=== PATIENT | female | born 2000 | race Caucasian/White ===

== ENCOUNTER 2020-01-21 19:25 | Emergency (ER) | payer OTHER ==
[2020-01-21] MEDS ORDERED: METOCLOPRAMIDE 10 MG/2mL INJ ONE (20:19)
[2020-01-21] MEDS ORDERED: KETOROLAC 30 MG/ML INJ ONE (20:20)
[2020-01-21] MEDS ORDERED: NA CHLORIDE 0.9% 1,000 ML ONE (20:20)
[2020-01-21 20:33] LABS: Absolute Lymphocytes (CBC) 2.6 K/uL (0.7-4.9); Basophils % 0.7 % (0-1.3); Hematocrit 42.6 % (36.0-45.0); Lymphocytes % 33.2 % (15.3-44.8); MPV 8.3 fL (7.6-11.3)
[2020-01-21 20:42] LABS: Bilirubin Total 0.4 mg/dL (0.2-1.0); Potassium 3.6 mmol/L (3.5-5.1); Protein, Total 8.1 g/dL (6.4-8.2)
[2020-01-21 20:43] LABS: Urine Blood NEGATIVE (NEG); Urine Glucose NEGATIVE (NEG); Urine Protein NEGATIVE (NEG); Urine Specific Gravity 1.015 (1.005-1.030)
--- NOTE | 2020-01-21 20:56 | ER ---
Nurse's Notes [facility] Name: Bre Romeo Age: 19 yrs Sex: Female : 2000 Arrival Date: 01/21/2020 Time: 19:30 Bed 23 Private MD: Diagnosis: Migraine without aura Presentation: 01/21 19:37 Presenting complaint: Patient states: Took Maxalt today around 1530 today, reports at sg about 1800 had felt tired with heaviness in the arms and legs, reports numbness to face, reports all symptoms resolved at this time, but still feels very tired. Transition of care: patient was not received from another setting of care. Onset of symptoms was January 21, 2020. Risk Assessment: Do you want to hurt yourself or someone else? Patient reports no desire to harm self or others. Initial Sepsis Screen: Does the patient meet any 2 criteria? No. Patient's initial sepsis screen is negative. Does the patient have a suspected source of infection? No. Patient's initial sepsis screen is negative. Care prior to arrival: None. 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 - Coronavirus screen:: The patient has NOT traveled to [place] in the past 14 days. The patient has NOT had contact with known/suspected case of Coronavirus?. - Social history:: Patient/guardian denies using alcohol, street drugs, The patient lives with family, Smoking status: Patient denies any tobacco usage or history of. - Family history:: not pertinent. - Ebola Screening: : Patient negative for fever greater than or equal to 101.5 degrees Fahrenheit, and additional compatible Ebola Virus Disease symptoms Patient denies exposure to infectious person Patient denies travel to an Ebola-affected area in the 21 days before illness onset No symptoms or risks identified at this time. Screenin:00 Abuse screen: Denies threats or abuse. Denies injuries from another. Nutritional wh screening: No deficits noted. Tuberculosis screening: No symptoms or risk factors identified. Fall Risk None identified. Assessment: 20:00 General: Appears in no apparent distress. Behavior is calm, cooperative, appropriate wh for age. Pain: Complains of pain in head ache. Neuro: Level of Consciousness is awake, alert, obeys commands, Oriented to person, place, time, situation, Appropriate for age Reports headache. Cardiovascular: Heart tones S1 S2. Respiratory: Airway is patent Respiratory effort is even, unlabored, Respiratory pattern is regular, symmetrical, Breath sounds are clear bilaterally. GI: Abdomen is flat, non-distended. : No signs and/or symptoms were reported regarding the genitourinary system. EENT: No signs and/or symptoms were reported regarding the EENT system. Derm: Skin is intact, is healthy with good turgor, Skin is pink, warm \T\ dry. normal. Musculoskeletal: Circulation, motion, and sensation intact. 21:10 Reassessment: Patient appears in no apparent distress at this time. No changes from previously documented assessment. Patient and/or family updated on plan of care and expected duration. Pain level reassessed. Patient is alert, oriented x 3, equal unlabored respirations, skin warm/dry/pink. Patient states feeling better. Patient states symptoms have improved. Vital Signs: 19:39 BP 120 / 55; Pulse 77; Resp 16; Temp 98.2(TE); Pulse Ox 100% on R/A; Weight 83.91 kg (R); Height 5 ft. 4 in. (162.56 cm); Pain 4/10; 21:00 BP 94 / 65; Pulse 78; Resp 18; Pulse Ox 99% on R/A; wh 19:39 Body Mass Index 31.75 (83.91 kg, 162.56 cm) ED Course: 19:30 Patient arrived in ED. jg7 19:36 Jonathan Latif MD is Attending Physician. ma2 19:39 Triage completed. sg 19:40 Mejia Penn is Primary Nurse. wh 20:00 Arm band placed on right wrist. wh 20:00 Patient has correct armband on for positive identification. Bed in low position. Call light in reach. Side rails up X 1. Pulse ox on. NIBP on. 20:05 Inserted saline lock: 20 gauge in right antecubital area, using aseptic technique. jb5 Blood collected. 20:11 CMP Sent. jb5 20:11 CBC with Diff Sent. jb5 21:16 No provider procedures requiring assistance completed. IV discontinued, intact, bleeding controlled, No redness/swelling at site. Administered Medications: 20:17 Drug: NS 0.9% 1000 ml Route: IV; Rate: 1 bolus; Site: right antecubital; 21:18 Follow up: Response: No adverse reaction; IV Status: Completed infusion 20:19 Drug: TORadol 30 mg Route: IVP; Site: right antecubital; 21:18 Follow up: Response: No adverse reaction; Pain is decreased 20:21 Drug: Reglan 20 mg Route: IVP; Site: right antecubital; 21:18 Follow up: Response: No adverse reaction Outcome: 20:55 Discharge ordered by . starla 21:17 Discharged to home ambulatory, with family. 21:17 Condition: stable 21:17 Discharge instructions given to patient, family, Instructed on discharge instructions, follow up and referral plans. medication usage, POC Demonstrated understanding of instructions, follow-up care, medications, POC Prescriptions given X 1. 21:19 Patient left the ED. Signatures: Sergio Turner, RN RN Julieta Dubon jb5 Mejia Penn Jonathan Latif MD MD ma2 Gutierrez, Jessica jg7
--- NOTE | 2020-01-21 20:56 | EDPHYS ---
Physician Documentation [facility] Name: Bre Romeo Age: 19 yrs Sex: Female : 2000 Arrival Date: 01/21/2020 Time: 19:30 Bed 23 Private MD: ED Physician Jonathan Latif HPI: 01/21 19:57 This 19 yrs old Female presents to ER via Ambulatory with complaints of ma2 Doesn't Feel Right. 19:57 The patient complains of pain to the forehead. Onset: The symptoms/episode ma2 began/occurred gradually, 1 day(s) ago. Associated signs and symptoms: Pertinent negatives: fever, neck stiffness, Photophobia. Severity of symptoms: At its worst the pain was moderate, in the emergency department the pain is unchanged. Headache History: The patient has had previous headaches and this one is similar to previous episodes. The patient has experienced similar episodes in the past. 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 - Coronavirus screen:: The patient has NOT traveled to [place] in the past 14 days. The patient has NOT had contact with known/suspected case of Coronavirus?. - Social history:: Patient/guardian denies using alcohol, street drugs, The patient lives with family, Smoking status: Patient denies any tobacco usage or history of. - Family history:: not pertinent. - Ebola Screening: : Patient negative for fever greater than or equal to 101.5 degrees Fahrenheit, and additional compatible Ebola Virus Disease symptoms Patient denies exposure to infectious person Patient denies travel to an Ebola-affected area in the 21 days before illness onset No symptoms or risks identified at this time. ROS: 19:57 Constitutional: Negative for fever, chills, and weight loss. ma2 19:57 All other systems are negative. Exam: 19:57 Constitutional: This is a well developed, well nourished patient who is awake, alert, ma2 and in no acute distress. Head/Face: Normocephalic, atraumatic. Eyes: Pupils equal round and reactive to light, extra-ocular motions intact. Lids and lashes normal. Conjunctiva and sclera are non-icteric and not injected. Cornea within normal limits. Periorbital areas with no swelling, redness, or edema. ENT: Nares patent. No nasal discharge, no septal abnormalities noted. Tympanic membranes are normal and external auditory canals are clear. Oropharynx with no redness, swelling, or masses, exudates, or evidence of obstruction, uvula midline. Mucous membranes moist. Neck: Trachea midline, no thyromegaly or masses palpated, and no cervical lymphadenopathy. Supple, full range of motion without nuchal rigidity, or vertebral point tenderness. No Meningismus. Chest/axilla: Normal chest wall appearance and motion. Nontender with no deformity. No lesions are appreciated. Cardiovascular: Regular rate and rhythm with a normal S1 and S2. No gallops, murmurs, or rubs. Normal PMI, no JVD. No pulse deficits. Respiratory: Lungs have equal breath sounds bilaterally, clear to auscultation and percussion. No rales, rhonchi or wheezes noted. No increased work of breathing, no retractions or nasal flaring. Abdomen/GI: Soft, non-tender, with normal bowel sounds. No distension or tympany. No guarding or rebound. No evidence of tenderness throughout. Back: No spinal tenderness. No costovertebral tenderness. Full range of motion. MS/ Extremity: Pulses equal, no cyanosis. Neurovascular intact. Full, normal range of motion. Neuro: Awake and alert, GCS 15, oriented to person, place, time, and situation. Cranial nerves II-XII grossly intact. Motor strength 5/5 in all extremities. Sensory grossly intact. Cerebellar exam normal. Normal gait. Vital Signs: 19:39 BP 120 / 55; Pulse 77; Resp 16; Temp 98.2(TE); Pulse Ox 100% on R/A; Weight 83.91 kg sg (R); Height 5 ft. 4 in. (162.56 cm); Pain 4/10; 21:00 BP 94 / 65; Pulse 78; Resp 18; Pulse Ox 99% on R/A; wh 19:39 Body Mass Index 31.75 (83.91 kg, 162.56 cm) MDM: 19:36 Patient medically screened. ma2 19:57 Differential diagnosis: migraine, tension headache, traumatic injuries, uremia. Data nv2 reviewed: vital signs, nurses notes, EMS record. 20:55 Counseling: I had a detailed discussion with the patient and/or guardian regarding: the ma2 historical points, exam findings, and any diagnostic results supporting the discharge/admit diagnosis, the presence of at least one elevated blood pressure reading (>120/80) during this emergency department visit, the need for outpatient follow up. Response to treatment: the patient's symptoms have resolved after treatment. 01/21 19:51 Order name: CBC with Diff nv2 01/21 19:51 Order name: CMP [facility] 01/21 20:24 Order name: Urine Dipstick--Ancillary (enter results) nh5 01/21 20:24 Order name: Urine --Ancillary (enter results) [facility] 01/21 20:35 Order name: CBC with Automated Diff; Complete Time: 20:49 EDMS 01/21 20:43 Order name: Comprehensive Metabolic Panel; Complete Time: 20:49 EDMS 01/21 19:51 Order name: Urine Dipstick-Ancillary (obtain specimen); Complete Time: 20:11 [facility] 01/21 20:46 Order name: Urine --Ancillary; Complete Time: 20:49 EDMS 01/21 20:46 Order name: Urine Dipstick-Ancillary; Complete Time: 20:49 EDMS Administered Medications: 20:17 Drug: NS 0.9% 1000 ml Route: IV; Rate: 1 bolus; Site: right antecubital; 21:18 Follow up: Response: No adverse reaction; IV Status: Completed infusion 20:19 Drug: TORadol 30 mg Route: IVP; Site: right antecubital; 21:18 Follow up: Response: No adverse reaction; Pain is decreased 20:21 Drug: Reglan 20 mg Route: IVP; Site: right antecubital; 21:18 Follow up: Response: No adverse reaction Disposition: 01/21/20 20:55 Discharged to Home. Impression: Migraine without aura. - Condition is Stable. - Discharge Instructions: Migraine Headache. - Prescriptions for Reglan 10 mg Oral Tablet - take 1 tablet by ORAL route every 6 hours . take 30 minutes before meals and at bedtime; 100 tablet. - Medication Reconciliation Form, Thank You Letter, Antibiotic Education, Prescription Opioid Use, Work release form form. - Follow up: Private Physician; When: Tomorrow; Reason: Continuance of care. Signatures: Dispatcher [employer] Sergio Burdick RN RN Mejia Penn Jonathan Latif MD MD ma2 Corrections: (The following items were deleted from the chart) 21:19 20:55 01/21/2020 20:55 Discharged to Home. Impression: Migraine without aura. Condition is Stable. Prescriptions for Reglan 10 mg Oral Tablet - take 1 tablet by ORAL route every 6 hours . take 30 minutes before meals and at bedtime; 100 tablet. and Forms are Medication Reconciliation Form, Thank You Letter, Antibiotic Education, Prescription Opioid Use. Follow up: Private Physician; When: Tomorrow; Reason: Continuance of care. ma2
[2020-01-21 23:09] VITALS: TEMP 98.2
[2020-01-21 23:10] VITALS: BP 94/65; O2SAT 99
== END 2020-01-21 21:19 | disposition home or self-care (01) ==
LOC: ER 19:25
DX: G43.009 Migraine without aura, not intractable, without status migrainosus (principal)
CPT/HCPCS: 96361; 85025; 36415; 81025; 81003; 80053; 96375; 96374; 99284; J2765; J7030

== ENCOUNTER 2025-04-24 09:05 | Day surgery (SDC) | payer BC, OTHER ==
[2025-04-24] MEDS: Ringers Lactate 1,000 ML IV ONE (09:58)
--- NOTE | 2025-04-24 11:12 | EKG ---
Test Date: 2025-04-24 Test Time: 08:09:01 Cheese Blender: SHEA MEASUREMENT RESULTS: Intervals: Rate: 66 OH: 134 QRSD: 80 QT: 382 QTc: 400 Brandon: P: 62 OH: 134 QRS: 39 T: 59 INTERPRETIVE STATEMENTS: Normal sinus rhythm with sinus arrhythmia Low voltage QRS Borderline ECG No previous ECG available for comparison Electronically Signed On 04-24-25 11:12:07 CDT by Chacorta King
[2025-04-24] MEDS ORDERED: propofoL 200 MG/20 ML VIAL IV ONE (11:20)
[2025-04-24] MEDS ORDERED: KETOROLAC 30 MG/ML INJ ONE (11:21)
[2025-04-24] MEDS ORDERED: LIDOCAINE 2% MPF 5 ML VIAL ONE (11:21)
[2025-04-24] MEDS ORDERED: dexAMETHasone 4 MG/ML VIAL ONE (11:21)
[2025-04-24] MEDS ORDERED: ONDANSETRON 4 MG/2 ML VIAL ONE (11:21)
[2025-04-24] MEDS ORDERED: ROCURONIUM 50 MG/5 ML VIAL IV ONE (11:23)
[2025-04-24] MEDS ORDERED: SUGAMMADEX SODIUM 200 MG/2 ML VIAL IV ONE (11:48)
[2025-04-24] MEDS ORDERED: FENTANYL CITR 100 MCG/2 ML ONE ×2 (11:48→13:21)
[2025-04-24] MEDS ORDERED: MIDAZOLAM HCL 2 MG/2 ML INJ ONE (11:48)
[2025-04-24] MEDS ORDERED: MAGNESIUM SULFATE 1 gm IVPB 1 GM/100 ML BAG IV ONE (11:49)
[2025-04-24] MEDS: CEFAZOLIN SODIUM 2 GM/VIAL ONE (12:20)
[2025-04-24] MEDS: LIDOCAINE HCL/EPINEPHRINE 20 ML MDV ONE (12:29)
--- NOTE | 2025-04-24 13:17 | P.OP ---
Preoperative diagnosis: Bilary Colic Postoperative diagnosis: Bilary Colic Primary procedure: Laparoscopic Cholecystectomy with ICG Cholangiography Anesthesia: GETA + Local Estimated blood loss: <5cc Specimen: Gallblader Findings: short cystic duct/art, long tangential course of CBD, Complications: None Transferred to: Recovery Room Condition: Good
--- NOTE | 2025-04-24 13:52 | OP ---
Date of Procedure: 04/24/2025 Surgeon: Vish Cuellar MD, Preoperative Diagnosis: Biliary colic. Postoperative Diagnosis: Biliary colic. Procedure Performed: Laparoscopic cholecystectomy with indocyanine green cholangiography. Anesthesia: General endotracheal plus local with 1% lidocaine with epinephrine. Estimated Blood Loss: Less than 5 cc. Specimen: Gallbladder. Findings: Short cystic duct and cystic artery were appreciated and long tangential course of the com mon bile duct was appreciated. Complications: None. Disposition: The patient was transferred to recovery room in good condition. Procedure In Detail: After informed consent was obtained, patient was brought to the operating room, prepped and draped in the usual sterile fashion after adequate anesthesia was achieved. I anestheti zed an area in the supraumbilical position down to subcutaneous tissues. 5 mm 0-degree optical troca r was introduced into the abdomen without incident or complication. Insufflation was obtained to 15 mmHg, at this time. No injury to vital structures upon entering the abdomen. Two additional trocars were placed, one in the epigastrium and one in the right upper quadrant. Both of these were similar ly anesthetized and sharply incised. A 5 mm trocar was placed under direct vision without incident o r complication. The umbilical trocar was then upsized to 12 mm under direct vision without incident or complication. At this point, I proceeded to put the patient head up right-side up position. Ratc heted graspers were used to grasp the patient's gallbladder, projected toward the patient's right stefanie ulder. Dissection continued down the So pouch of the gallbladder encircling 2 structures, iden tified both cystic duct and cystic artery. Cystic duct and cystic artery had quite short course with a short takeoff of a tangential common duct, at this point and the takeoff of the right hepatic was short as well for the cystic artery branch. At this point, after these structures were skeletonized, critical view of safety was obtained in both anterior and lateral directions with the liver in the p osterior window. I then performed indocyanine green cholangiography, confirmed the anatomy as descri bed above. I then placed double titanium clips, doubly on the proximal side, and singly on the dista l side of both cystic duct and cystic artery. These structures were then ligated between Endo Karine . At this point, the gallbladder was removed from the hepatic fossa without incident or complication , placed in an EndoCatch bag, removed through the umbilical trocar site, sent off for pathologic exam ination. The area was copiously irrigated at the end of the procedure and suctioned out completely d ry. No additional hemostatic measures were required, at the end of the procedure. There was no evid ence of bleeding and indocyanine green cholangiography showed no additional bile leak, at the end of the procedure. At this point, the patient was positioned back in neutral position. The remaining ef fluent was suctioned out. 12 mm trocar site was then closed using a Gorge-Alec suture passer wi th an 0 Vicryl in an interrupted fashion with good approximation of tissues. The abdomen was then de sufflated under direct vision without incident or complication. The remainder of trocars were remove d. All skin incisions were then copiously irrigated and closed with a 4-0 Monocryl in a running fash ion. Dermabond was placed over top. The patient tolerated the procedure well without incident or co mplication, transferred to PACU in good condition. All counts were correct at the end of the case. MISHA/MARIA D Voice ID: [id number] Report ID: [id number]
[2025-04-24] MEDS: HYDROCODONE/APAP 7.5/325 MG TAB PO ONE (14:27)
[2025-04-24] MEDS ORDERED: HYDROCODONE/APAP 7.5/325 MG TAB ONE (14:27)
[2025-04-24 15:18] VITALS: BP 105/63; TEMP 97; O2SAT 100
[2025-04-24] MEDS: FENTANYL CITR 100 MCG/2 ML ONE (15:31)
== END 2025-04-24 15:04 | disposition home or self-care (01) ==
LOC: OR 09:05
PROVIDERS: ATTEND Surgery
PROC: BF50200 Other Imaging of Bile Ducts using Fluorescing Agent, Indocyanine Green Dye, Intraoperative (ICD-10-PCS; 2025-04-24)
PROC: 0FT44ZZ Resection of Gallbladder, Percutaneous Endoscopic Approach (ICD-10-PCS; principal; 2025-04-24 12:00)
DX: K80.10 Calculus of gallbladder with chronic cholecystitis without obstruction (principal); K82.8 Other specified diseases of gallbladder
CPT/HCPCS: 93005; 80048; 36415; 84703; 88304; 47563; J3475; J2704; J1100; J2003; J2250; J3010 ×3; J2405; J7120